=== PATIENT | female | born 1975 | race Caucasian/White ===

== ENCOUNTER 2020-08-12 08:53 | Day surgery (SDC) | payer SELFPAY ==
[~2020-08-12] VITALS: Ht 174 cm; Wt 75.7 kg
[~2020-08-12 08:53] MED LIST: BENADRYL 25MG C25 MG PO; FLONASE AL50 MCG/ACT; OMEPRAZOLE20 MG PO; PROAIR HFA IN
[2020-08-12 09:45] LABS: HCG SERUM/URINE (NEG/POS) NEGATIVE (NEGATIVE)
[2020-08-12 11:39] VITALS: BP 113/68
--- NOTE | 2020-08-25 09:56 | NUR ---
PER DR MARKS THE EGD PATIENT DOES NOT HAVE BARRETTS BUT HAS CHRONIC INFLAMMATION. RECOMMENDED OMEPRAZOLE 20 MG PO BID X 90 DAYS. THEN 20MG DAILY. COLONOSCOPY WAS NEGATIVE, REPEAT IN 10 YEARS. CALLED [facility] FOR MEDICATION AND ADVISED THE PATIENT OF THE SAME. SHE STATED SHE UNDERSTOOD.
== END 2020-08-12 12:05 | disposition home or self-care (01) | DRG 392 ==
LOC: ENDO 08:53 → ORM 09:30 → ENDO 09:30
PROVIDERS: ATTEND Surgery
PROC: 0DB48ZX Excision of Esophagogastric Junction, Via Natural or Artificial Opening Endoscopic, Diagnostic (ICD-10-PCS; principal; 2020-08-12)
PROC: 0DJD8ZZ Inspection of Lower Intestinal Tract, Via Natural or Artificial Opening Endoscopic (ICD-10-PCS; 2020-08-12)
DX: R10.9 Unspecified abdominal pain (principal); K21.0 Gastro-esophageal reflux disease with esophagitis; K44.9 Diaphragmatic hernia without obstruction or gangrene; K64.8 Other hemorrhoids; Z79.899 Other long term (current) drug therapy; Z20.828 Contact with and (suspected) exposure to other viral communicable diseases